=== PATIENT | male | born 1985 | race African-American/Black ===

== ENCOUNTER 2017-11-18 23:12 | Inpatient (IN) | payer SELFPAY ==
[~2017-11-18] VITALS: Ht 177.8 cm; Wt 104.0 kg
[~2017-11-18 23:12] MED LIST: ARTIFICIAL TEAR1510 BOTH EYES; Atarax,Vistaril PO; BENADRYL ALLERG25 MG; BENZTROPINE MESY1 MG PO; BENZTROPINE MESY2 MG PO; CARBAMAZEPINE400 MG PO; CELEBREX200 MG PO; CLARITIN10 M3 PO; COGENTIN2 MG PO; Claritin,Alavart PO; Cogentin PO; DAIRY DIGES3000 UNIT PO; DAIRY RELIE3000 UNIT PO; DEPAKOTE ER250 MG PO; DIVALPROEX SOD250 M1 PO; DOCUSATE SODIU100 MG PO; Depakene PO; Depakote ER (Extende PO; ELAVIL10 MG PO; GEODON80 MG PO; GERI-LANTA LIQ355 ML PO; Glucophage PO; INDERAL40 MG PO; KLONOPIN1 MG PO; LACTAID ULT9000 UNIT PO; LACTASE; LEVETIRACETAM250 MG PO; MAALOX SUSPENS148 ML; METFORMIN HCL500 M2 PO; METFORMIN HCL500 MG PO; MIRALAX17 GM PO; MOTRIN600 MG PO; Metamucil Packet PO; Motrin PO; NOSE SPRAY30 ML NS; OLANZAPINE10 MG PO; OLANZAPINE15 MG PO; OMEPRAZOLE40 M1 PO; PINK BISMU PO; POVIDONE IODIN TP; PREPARATION H O28 GM PR; PRILOSEC20 MG PO; PRILOSEC40 MG PO; PROLIXIN PO; PriLOSEC PO; Protonix PO; Proventil,Ventolin H IH; RISPERDAL CONSTA; TEGretol PO; THORAZINE50 MG PO; TYLENOL REGULA325 MG PO; VALPROIC A250 MG/5 M PO; VENTOLIN HFA18 GM IH; VITAMIN D1000 UNIT PO; X VIATE TP; XYZAL5 MG PO; ZOLOFT PO; ZYPREXA10 MG PO; ZYPREXA15 MG PO; ZYPREXA2.5 MG PO; ZYPREXA20 MG PO; ZYPREXA5 MG PO; ZyPREXA PO
[2017-11-19 00:08] LABS: HEMATOCRIT 38.8 % (38.0-50.0); HEMOGLOBIN 12.4 G/DL (12.5-16.6); MCH 25.7 PG (29.0-34.0); MCV 80.5 FL (86-99); PLATELET COUNT 222 K/uL (156-360); RBC DIS.WIDTH-CV 14.9 % (11.8-14.6); RBC DIS.WIDTH-SD 43.8 % (39-53); RED BLOOD COUNT 4.82 M/uL (4.00-5.50); WHITE BLOOD COUNT 9.2 K/uL (4.1-10.2)
[2017-11-19 00:17] LABS: ALBUMIN 4.5 g/dL (3.2-4.8); CHLORIDE 106 mEq/L (99-109); POTASSIUM 3.9 mEq/L (3.7-5.4); SODIUM 140 mEq/L (136-147)
[2017-11-19 00:19] LABS: GLUCOSE 125 mg/dL (70-99); TOTAL PROTEIN 7.2 g/dL (6.4-8.3)
[2017-11-19 00:21] LABS: TOTAL BILIRUBIN 0.3 mg/dL (0.0-1.0)
[2017-11-19 00:23] LABS: ALKALINE PHOSPHATASE 93 IU/L (3-129); CREATININE 1.2 mg/dL (0.6-1.3); GFR ESTIMATE (CALCULATED) > 59 mL/min/ (58.99-99999)
[2017-11-19 00:24] LABS: UREA NITROGEN (BUN) 12 mg/dL (9-23)
[2017-11-19 00:25] LABS: AST (GOT) 31 IU/L (2-34)
[2017-11-19 00:26] LABS: ALT (GPT) 34 IU/L (3-49); LIPASE 17 U/L (1.0-51.0); TOTAL CK 1440 IU/L (1-294)
[2017-11-19 00:32] LABS: CKMB RELATIVE INDEX 0.1 (0.0-3.9)
[2017-11-19 00:39] LABS: CREATINE KINASE 1440 IU/L (1-294)
[2017-11-19] MEDS ORDERED: ENALAPRIL MALEA20 MG PO (01:43)
[2017-11-19] MEDS ORDERED: CLOZAPINE100 MG PO (01:44)
[2017-11-19] MEDS ORDERED: ENULOSE10 GM/15 M PO (01:45)
[2017-11-19] MEDS ORDERED: ZYPREXA ZYDIS20 MG PO (01:45)
[2017-11-19] MEDS ORDERED: LITHIUM CARBON300 MG PO (01:48)
[2017-11-19] MEDS ORDERED: BENADRYL50 MG PO (01:49)
[2017-11-19] MEDS ORDERED: LITHIUM CARBON600 MG PO (01:49)
[2017-11-19] MEDS ORDERED: FLUPHENAZINE HC10 MG PO (01:50)
[2017-11-19] MEDS ORDERED: PHILLIPS'400 MG/5 M PO (01:52)
[2017-11-19 08:25] LABS: APPEARANCE CLEAR ((CLEAR)); BILIRUBIN NEGATIVE; BLOOD NEGATIVE; COLOR YELLOW ((YELLOW)); GLUCOSE (STRIP) NEGATIVE; KETONES NEGATIVE; LEUKOCYTES NEGATIVE; NITRITE NEGATIVE; PROTEIN (STRIP) NEGATIVE; SPECIFIC GRAVITY 1.023 (1.000-1.030); UCUL ADDED? NO
[2017-11-19 09:38] LABS: CREATINE KINASE 929 IU/L (1-294); TOTAL CK 929 IU/L (1-294)
[2017-11-19 09:45] LABS: CK-MB 1.6 ng/mL (0.0-4.9); CKMB RELATIVE INDEX 0.2 (0.0-3.9)
[2017-11-19 15:08] VITALS: BP 135/76
[2017-11-19 23:04] VITALS: BP 109/70
[2017-11-20 07:07] LABS: HEMATOCRIT 35.4 % (38.0-50.0); MCH 24.9 PG (29.0-34.0); MCHC 31.1 G/DL (30.0-36.0); MCV 80.3 FL (86-99); PLATELET COUNT 213 K/uL (156-360); RBC DIS.WIDTH-CV 14.9 % (11.8-14.6); RBC DIS.WIDTH-SD 43.8 % (39-53); RED BLOOD COUNT 4.41 M/uL (4.00-5.50); WHITE BLOOD COUNT 7.8 K/uL (4.1-10.2)
[2017-11-20 07:38] LABS: ALBUMIN 3.7 G/DL (3.2-4.8); ALKALINE PHOSPHATASE 67 IU/L (3-129); ALT (GPT) 19 IU/L (3-49); AST (GOT) 14 IU/L (2-34); CHLORIDE 108 MEQ/L (99-109); CREATINE KINASE 535 IU/L (1-294); CREATININE 0.9 MG/DL (0.6-1.3); GFR ESTIMATE (CALCULATED) > 59 mL/min/ (58.99-99999); GLUCOSE 96 mg/dL (70-99); SODIUM 141 MEQ/L (136-147); TOTAL BILIRUBIN 0.5 MG/DL (0.0-1.0); TOTAL CK 535 IU/L (1-294); TOTAL PROTEIN 5.9 G/DL (6.4-8.3); UREA NITROGEN (BUN) 8 mg/dL (9-23)
[2017-11-20 07:56] VITALS: BP 143/83
[2017-11-20 08:08] LABS: CK-MB 1.9 ng/mL (0.0-4.9); CKMB RELATIVE INDEX 0.4 (0.0-3.9)
[2017-11-20 15:35] VITALS: BP 125/79
[2017-11-20 16:56] LABS: BASOPHIL (%) 0.2 % (0-1); EOSINOPHIL (%) 1.9 % (0-5); EOSINOPHIL COUNT 0.2 K/uL (0-0.3); IMMATURE GRANULOCYTE (%) 0.2 % (0.0-0.7); LYMPHOCYTE (%) 33.2 % (15-42); LYMPHOCYTE COUNT 2.7 K/uL (1.0-2.8); MONOCYTE (%) 8.2 % (3-12); MONOCYTE COUNT 0.7 K/uL (0-0.8); NEUTROPHIL (%) 56.3 % (45-76); NEUTROPHIL COUNT 4.5 K/uL (1.8-6.4)
[2017-11-20 23:30] VITALS: BP 112/63
[2017-11-21 08:06] VITALS: BP 136/71
[2017-11-21 10:47] LABS: CHLORIDE 106 MEQ/L (99-109); CREATINE KINASE 485 IU/L (1-294); CREATININE 0.9 MG/DL (0.6-1.3); GFR ESTIMATE (CALCULATED) > 59 mL/min/ (58.99-99999); GLUCOSE 108 mg/dL (70-99); POTASSIUM 3.8 MEQ/L (3.7-5.4); SODIUM 141 MEQ/L (136-147); UREA NITROGEN (BUN) 8 mg/dL (9-23)
[2017-11-21 16:01] VITALS: BP 100/58
== END 2017-11-21 16:18 | DRG 558 ==
LOC: EME → EDBD 23:12 → EME 23:12 → 3EAST 11-19 01:02 → EDOF 11-19 01:02 → ENRESERV 11-19 01:32 → 3EAST 11-19 14:54
PROVIDERS: Emergency Medicine; Family Medicine; Internal Medicine
DX: M62.82 Rhabdomyolysis (principal); T42.4X5A Adverse effect of benzodiazepines, initial encounter; G40.909 Epilepsy, unspecified, not intractable, without status epilepticus; I95.9 Hypotension, unspecified; F25.9 Schizoaffective disorder, unspecified; F70 Mild intellectual disabilities; K11.7 Disturbances of salivary secretion; F31.9 Bipolar disorder, unspecified; R40.0 Somnolence; R74.8 Abnormal levels of other serum enzymes; E66.9 Obesity, unspecified; Z68.32 Body mass index [BMI] 32.0-32.9, adult
CPT/HCPCS: 71045; 80048; 80053; 80164; 80178; 81003; 82140; 82550; 82550 91; 82553; 83690; 85025; 85027; 90686; 93005; 94760; 99202; 99281; 99285; J1650; J2060; J7030

== ENCOUNTER 2017-12-15 02:29 | Emergency (ER) | payer SELFPAY ==
[~2017-12-15] VITALS: Ht 188 cm; Wt 99.4 kg
[~2017-12-15 02:29] MED LIST changes: +BENADRYL50 MG PO; +CLOZAPINE100 MG PO; +ENALAPRIL MALEA20 MG PO; +ENULOSE10 GM/15 M PO; +FLUPHENAZINE HC10 MG PO; +LITHIUM CARBON300 MG PO; +LITHIUM CARBON600 MG PO; +PHILLIPS'400 MG/5 M PO; +ZYPREXA ZYDIS20 MG PO
[2017-12-15 03:37] LABS: CHLORIDE 105 mEq/L (99-109); POTASSIUM 3.8 mEq/L (3.7-5.4); SODIUM 139 mEq/L (136-147)
[2017-12-15 03:39] LABS: GLUCOSE 121 mg/dL (70-99)
[2017-12-15 03:43] LABS: GFR ESTIMATE (CALCULATED) > 59 mL/min/ (58.99-99999)
[2017-12-15 03:44] LABS: UREA NITROGEN (BUN) 9 mg/dL (9-23)
[2017-12-15 04:33] VITALS: BP 116/83
== END 2017-12-15 04:36 ==
LOC: EME 02:29
PROVIDERS: Emergency Medicine
DX: G40.409 Other generalized epilepsy and epileptic syndromes, not intractable, without status epilepticus (principal); M54.9 Dorsalgia, unspecified; R51 Headache; W18.30XA Fall on same level, unspecified, initial encounter; F79 Unspecified intellectual disabilities; J45.909 Unspecified asthma, uncomplicated
CPT/HCPCS: 70450; 80048; 99281; 99284

== ENCOUNTER 2018-02-27 11:37 | Emergency (ER) | payer SELFPAY ==
[~2018-02-27] VITALS: Ht 182.9 cm; Wt 71.1 kg
[2018-02-27 12:45] LABS: BASOPHIL (%) 0.3 % (0-1); EOSINOPHIL (%) 1.1 % (0-5); EOSINOPHIL COUNT 0.1 K/uL (0-0.3); HEMATOCRIT 40.9 % (38.0-50.0); IMMATURE GRANULOCYTE (%) 0.4 % (0.0-0.7); LYMPHOCYTE (%) 20.6 % (15-42); LYMPHOCYTE COUNT 1.7 K/uL (1.0-2.8); MCH 25.5 PG (29.0-34.0); MCHC 31.8 G/DL (30.0-36.0); MCV 80.2 FL (86-99); MONOCYTE (%) 7.6 % (3-12); MONOCYTE COUNT 0.6 K/uL (0-0.8); NEUTROPHIL COUNT 5.6 K/uL (1.8-6.4); PLATELET COUNT 207 K/uL (156-360); RBC DIS.WIDTH-CV 14.1 % (11.8-14.6); RBC DIS.WIDTH-SD 41.4 % (39-53)
[2018-02-27 12:57] LABS: CHLORIDE 106 mEq/L (99-109)
[2018-02-27 12:58] LABS: POTASSIUM 3.8 mEq/L (3.7-5.4); SODIUM 141 mEq/L (136-147)
[2018-02-27 12:59] LABS: GLUCOSE 128 mg/dL (70-99)
[2018-02-27 13:03] LABS: CREATININE 1.2 mg/dL (0.6-1.3); GFR ESTIMATE (CALCULATED) > 59 mL/min/ (58.99-99999)
[2018-02-27 13:04] LABS: UREA NITROGEN (BUN) 9 mg/dL (9-23)
[2018-02-27 14:41] VITALS: BP 124/83
== END 2018-02-27 14:41 | disposition home or self-care (01) ==
LOC: EME → EDBD 11:37 → EME 14:41
PROVIDERS: Emergency Medicine
DX: G40.409 Other generalized epilepsy and epileptic syndromes, not intractable, without status epilepticus (principal); F79 Unspecified intellectual disabilities
CPT/HCPCS: 80048; 80178; 85025; 99281; 99284

== ENCOUNTER 2018-05-10 07:12 | Day surgery (SDC) | payer SELFPAY ==
[~2018-05-10] VITALS: Ht 185.4 cm; Wt 88.0 kg
[~2018-05-10 07:12] MED LIST changes: +BENZTROPINE ME0.5 MG PO; +GLYCOPYRROLATE2 MG PO; +LAMOTRIGINE150 MG PO; +LEVOCARNITINE330 MG PO; +LOPRESSOR25 MG PO; +VITAMIN E400 UNIT PO
== END 2018-05-10 10:50 | disposition home or self-care (01) ==
LOC: CATH 07:12
DX: Z45.2 Encounter for adjustment and management of vascular access device (principal); I87.8 Other specified disorders of veins; F25.9 Schizoaffective disorder, unspecified; F70 Mild intellectual disabilities
CPT/HCPCS: C1751; C1894; J0690; J1644; J2250; J3010; S0020